=== PATIENT | female | born 2000 | race Caucasian/White ===

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

== ENCOUNTER 2021-10-31 17:00 | Outpatient (RCR) | payer MEDICAID, SELFPAY ==
--- NOTE | 2021-09-26 18:03 | HP.PTEVAL ---
Patient's Visit Information ELEAZAR STEELE is a 21 year old F referred to Physical Therapy by LENNY Webster with a diagnosis of B knee pain. Date of Evaluation: 09/26/21 Physical Therapist: Pancho Valenzuela, PT, ATC - Visit Plan Frequency: 2-3x /Week Duration: 4-6 Weeks Plan: B LE stretching, strenthening (hip abd and vmo), core stab ex's, balance and proprio, bike, and HEP - Subjective Pt reports she has had chronic B knee pain for years. This episode started a couple weeks ago with an insidious onset. Pt reports she had recent x-rays which showed no significant findings. Pt reports no tingling or numbness in B LE's with exception to L knee secondary to hjaving surgery 2 years ago to re-align her patella. Pt reports occasional sleep difficulty secondary to pain. Pt reports she has a hard time with running, jumping, and squatting secondary to pain. 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 Pt reports B knee pain is rated at 3/10 at rest, increases to 8/10 at worst. Pt reports 3 stairs to get into her house, and notes difficulty with negotiating them. - Pain B knees Pain Intensity (Out of 10): 3 Pain Intensity Range: 8 - Objective Neuro: B LE sensation is WNL to light touch. B patellar reflex= 1/3. Girth at joint line: B knees 41 cm. ROM: L knee 0-130, R knee 0-125. MMT: B knees are grossly 4/5 and painful with testing. Special tests: Pos McConnells sign, 90/90 test, knee valgus with lunges - Balance/Special Test Scores Lower Extremity Functional Score: 47 - Goals Goal 1:: Decrease B knee pain x 50% to aid with sleep Goal Time Frame: 4-6 Weeks Goal 2:: Increase B knee strength x 1 grade to aid with stair negotiation Goal Time Frame: 4-6 Weeks Goal 3:: Increase B HS flexibility x 1 grade to aid with decreasing pain Goal Time Frame: 4-6 Weeks Goal 4:: I with HEP Goal Time Frame: 4-6 Weeks - Rehabilitation Potential Physical Therapy Diagnosis: B knee pain, weakness, and limited flexibility secondary to patello-femoral syndrome Rehabilitation Potential: Good - Anticipated Interventions Patient/Client Instruction: Educate patient on: Condition, Plan of Care For the Purpose of:: To improve self management Therapeutic Exercise to Include: Strength training, Endurance training, Balance training, Flexibilty training, Dynamic Lumbar Stabilization For the Purpose of:: To decrease pain, To improve muscle performance and motor function Cryotherapy (ice pack, ice massage): Yes For the Purpose of:: To decrease pain Thank you for the opportunity to evaluate your patient. For Medicare and Medicare HMO plans, please review the plan of care and approve it. It will need to be FAXED BACK to us at [phone] for Medicare purposes. For Medicare only, by signing this I certify the plan of care. Please let me know if there are questions or concerns regarding this plan of care. Physician Signature: Date:
--- NOTE | 2021-12-05 15:20 | HP.PT.NRP ---
ELEAZAR STEELE was seen in my office for initial evaluation on 09/26/21. The following Plan of Care was established for this patient: Initial Frequency: 2-3x /Week Initial Duration: 4-6 Weeks Patient/Client Instruction: Educate patient on: Condition, Plan of Care For the Purpose of:: To improve self management Therapeutic Exercise to Include: Strength training, Endurance training, Balance training, Flexibilty training, Dynamic Lumbar Stabilization For the Purpose of:: To decrease pain, To improve muscle performance and motor function Cryotherapy (ice pack, ice massage): Yes For the Purpose of:: To decrease pain This patient was last seen in our office . Pertinent comments regarding their Physical therapy will appear below: Pt was treated for B knee pain for 8 PT visits through the date of 10/31/21. Pt has not returned through todays date and is discontinued at this time. At this point I will be discontinuing this patient from physical therapy. I would be happy to see this patient again in the future if found appropriate by the physician. Thank you! Pancho Valenzuela, PT, ATC Balance/Gait/Functional tests - Balance/Special Test Scores Lower Extremity Functional Score: 47
== END 2021-10-31 19:00 | disposition home or self-care (01) ==
LOC: PT 17:00
PROVIDERS: PCP Family Medicine; Referring Provider Physician Assistant; Visit Provider Physician Assistant
DX: M22.2X1 Patellofemoral disorders, right knee (principal); M22.2X2 Patellofemoral disorders, left knee; M70.51 Other bursitis of knee, right knee; M70.52 Other bursitis of knee, left knee; R53.1 Weakness
CPT/HCPCS: 97110; 97161

== ENCOUNTER → 2022-12-08 | Outpatient (CLI) | payer MEDICAID, SELFPAY ==
[2022-12-08 17:44] LABS: Absolute Lymphocyte Count 2.75 X10^3/uL (0.83-4.51); Absolute Neutrophil Count 4.4 X10^3/uL (2.0-7.7); Basophil# 0.04 X10^3/uL; Basophil% 0.5 % (0-1); Eosinophil# 0.22 X10^3/uL; Eosinophils% 2.8 % (0-5); Hematocrit 40.4 % (37-47); Hemoglobin 13.4 g/dL (12.0-15.0); Lymphocyte # 2.75 X10^3/ul (0.83-4.51); Lymphocyte % 34.4 % (19-41); Mean Corp Hgb Conc 33.2 g/dL (32-36); Mean Corpuscular Hgb 31.9 pg (27.0-32.0); Mean Corpuscular Volume 96.2 fL (81-99); Mean Platelet Vol. 11.2 fl (6.2-12.0); Monocyte# 0.57 X10^3/uL; Monocyte% 7.1 % (0-10); NRBC Flagged by Analyzer 0 % (0-5); Neutrophil % 54.9 % (47-70); Platelet Count 356 K/mm3 (150-450); RBC Distribution Width SD 42.6 fl (35.1-43.9)
[2022-12-08 17:56] LABS: Anion Gap 9 (5-15); BUN 11 mg/dL (7-18); BUN/Creat Ratio 16.2 RATIO (10-20); Calcium,Total 9.5 mg/dL (8.5-10.1); Chloride 104 mmol/L (98-107); Creatinine, Serum 0.68 mg/dL (0.55-1.02); EST Glomerular Filtration Rate 116 mL/min (>60); Est Glom Filt Rate - Afr Amer 140 mL/min (>60); Glucose 84 mg/dL (74-106); Potassium 3.7 mmol/L (3.5-5.1); Sodium Level 140 mmol/L (136-145)
== END | disposition home or self-care (01) ==
LOC: BFHLAB 15:51
PROVIDERS: PCP Family Medicine; Visit Provider Family Medicine
DX: R42 Dizziness and giddiness (principal)
CPT/HCPCS: 36415; 80048; 85025

== ENCOUNTER 2023-03-27 06:14 | Emergency (ER) | payer MEDICAID, SELFPAY ==
[2023-03-27 06:16] VITALS: BP 138/89; PULSE 84; RESP 18; TEMP 36.3; O2SAT 97; BMI 33.1
--- NOTE | 2023-03-27 07:14 | CT_ITS ---
STUDY: CTA CHEST REASON FOR EXAM: Female, 22 years old. ? PE. Left-sided chest pain with deep breathing. RADIATION DOSAGE (If Supplied By Facility): CTDIvol = ( 12.7 ) mGy, DLP = ( 438.45 ) mGycm TECHNIQUE: The examination was performed with the intravenous administration of IV 100mL Isovue-370. Post-processing of the angiographic images was performed, with multiplanar reformation and 3D reconstruction. Individualized dose optimization techniques were used for this CT. COMPARISON: None. FINDINGS: Normal enhancement of the main pulmonary artery and right and left pulmonary arteries. Normal enhancement of the bilateral peripheral pulmonary arteries. There is no demonstrated pulmonary embolism. Normal thoracic aorta and visualized great vessels. There is no demonstrated aortic dissection. Normal heart and pericardium. Normal mediastinum. Normal hilar regions. Normal visualized trachea and bronchi. The lungs are well expanded. Normal pulmonary parenchyma. Normal pleura. Normal chest wall structures. Normal osseous structures. Normal visualized upper abdomen. CT/CTA Chest W/WO Contrast IMPRESSION: Normal CTA chest examination, without a demonstrated pulmonary embolism or arterial dissection. Electronically Signed: Ihsan Currie MD at 8:31 EDT ,
[2023-03-27] MEDS: 0.9% Normal Saline 1,000 ML 999 ML IV (07:41)
[2023-03-27 07:42] LABS: Absolute Lymphocyte Count 2.21 X10^3/uL (0.83-4.51); Absolute Neutrophil Count 2.3 X10^3/uL (2.0-7.7); Basophil# 0.05 X10^3/uL; Eosinophil# 0.14 X10^3/uL; Eosinophils% 2.8 % (0-5); Hematocrit 37.3 % (37-47); Hemoglobin 12.8 g/dL (12.0-15.0); Lymphocyte # 2.21 X10^3/ul (0.83-4.51); Lymphocyte % 43.7 % (19-41); Mean Corp Hgb Conc 34.3 g/dL (32-36); Mean Corpuscular Hgb 31.7 pg (27.0-32.0); Mean Corpuscular Volume 92.3 fL (81-99); Mean Platelet Vol. 10.9 fl (6.2-12.0); Monocyte% 7.9 % (0-10); NRBC Flagged by Analyzer 0 % (0-5); Neutrophil # 2.25 X10^3/uL (2.7-7.7); Neutrophil % 44.4 % (47-70); POSITIVE MORPHOLOGY YES; Platelet Count 189 K/mm3 (150-450); RBC Distribution Width CV 12.3 % (11.6-14.6); RBC Distribution Width SD 41.6 fl (35.1-43.9); Red Blood Count 4.04 M/mm3 (4.2-5.4); White Blood Count 5.1 K/mm3 (4.4-11.0)
[2023-03-27] MEDS: Ketorolac 30 MG/ML Syringe IV (07:42)
[2023-03-27 07:49] LABS: Differential Indicated SCAN CRITERIA MET
[2023-03-27 07:51] LABS: Internal QC Validated? YES +Cl - CLEAR BKGD; Pregnancy, Serum, hCG Quali. NEGATIVE Negative
[2023-03-27 07:57] LABS: Anion Gap 5 (5-15); BUN 7 mg/dL (7-18); BUN/Creat Ratio 12.7 RATIO (10-20); Calcium,Total 8.6 mg/dL (8.5-10.1); Chloride 112 mmol/L (98-107); Creatinine, Serum 0.55 mg/dL (0.55-1.02); EST Glomerular Filtration Rate 147 mL/min (>60); Est Glom Filt Rate - Afr Amer 178 mL/min (>60); Estimated Creatinine Clearance 157.34 ml/min; Glucose 116 mg/dL (74-106); Potassium 3.5 mmol/L (3.5-5.1); Sodium Level 144 mmol/L (136-145)
[2023-03-27 08:08] LABS: Differential Comment SCANNED
[2023-03-27 08:35] LABS: Partial Thromboplast Time 32.3 Seconds (24.1-36.2); Prothrombin Time (Protime)PT. 13.2 SECONDS (11.7-14.9)
[2023-03-27 08:43] VITALS: BP 119/71; PULSE 65; RESP 16; O2SAT 96
--- NOTE | 2023-03-27 09:02 | EX.ED.DYSGE1 ---
HPI History of Present Illness Chief Complaint: Other, Pain/Inj Narrative Narrative: Patient is a 22-year-old female with no significant past medical history. She states she was seen in outside hospital on Sunday secondary to pain along her left upper abdomen/lower rib cage that is worse with inspiration. She reports that there was no trauma and she did not have any flank pain or cough associated with the pain. She states that they performed a CT scan of her abdomen and pelvis and told her she has a urinary tract infection and placed her on antibiotics. Patient states that she has taken these for 2 days and despite the medication has had persistent pain mainly with inspiration in the left-sided lower rib cage. She states that her mother has history of nonprovoked blood clot and secondary to his has concerned that she may have developed them and comes in for repeat evaluation. PFSH PFSH Medical History no medical history Home Medications cephalexin 500 mg capsule 500 mg PO TID 03/27/23 [History Last Taken 03/27/23 0500] Allergy/AdvReac Type Severity Reaction Status Date / Time No Known Allergies Allergy Verified 03/27/23 06:19 Social History (Updated 12/19/19 @ 10:21 by LENNY Fernandes) Smoking Status: Never smoker ROS ROS ED Constitutional Constitutional ED: Denies chills or fever(s) ENT ENT ED: Denies sore throat Cardiovascular Cardiovascular: Reports chest pain; Denies palpitations or racing heartbeat Respiratory/Chest Respiratory/Chest: Denies cough or dyspnea Gastrointestinal Gastrointestinal: Denies abdominal pain, diarrhea, nausea or vomiting Genitourinary Genitourinary ED: Denies dysuria Musculoskeletal Musculoskeletal: Denies back pain or myalgias Integumentary Denies rash Neurologic Neurologic: Denies headache(s) Hematologic/Lymphatic Hematologic/Lymphatic: Denies easy bleeding or easy bruising EXAM Physical Exam Const Vital Signs: 03/27/23 06:16 03/27/23 07:46 03/27/23 08:43 Temperature 97.3 F L Temperature Source Temporal Pulse Rate 84 65 Respiratory Rate 18 16 Respiratory Effort Normal Non-Labored Respiratory Pattern Normal Blood Pressure 138/89 H 119/71 Blood Pressure Mean 105 87 Pulse Ox 97 96 Oxygen Delivery Method Room Air Room Air Positive well nourished and well developed General Appearance ED: well developed Eyes PERRL and EOMs intact bilaterally General Eye ED: Negative for scleral icterus Neck supple Chest Wall Chest Narrative: There is pain on palpation along the left anterior lateral lower rib cage ribs 11 or 12 without bony deformity or crepitance. Resp normal respiratory effort and clear to auscultation bilaterally Resp Narrative: Patient does have pleuritic chest pain Cardio regular rate and regular rhythm GI normal to inspection, nondistended, normoactive bowel sounds, non-tender, non-distended and no masses GI Narrative: No voluntary guarding or rigidity no pulsatile mass. Auscultation: normoactive bowel sounds Palpation: soft Back/Spine no CVA tenderness Extremity normal to inspection Extremity Narrative: No asymmetric edema no pitting edema negative Homans' sign bilaterally Neuro oriented x3 and CN's II-XII intact bilaterally Sensorium / Orientation: alert Psych mental status grossly normal Skin no rashes or lesions noted Skin Narrative: No overlying soft tissue changes to suggest trauma or infection MDM MDM MDM Narrative Medical decision making narrative: Patient presented to the ER with stable vitals and in no acute respiratory distress. She reported pain along the left anterior lateral lower ribs that is worse with inspiration but denied any recent trauma or excessive activity. Differential diagnosis includes musculoskeletal strain versus pneumonia versus pneumothorax versus pulmonary embolus. Because patient has a first relative with unprovoked pulmonary emboli and she does have persistent pain that is worse with inspiration I have concern for that despite stable vitals and therefore CTA was obtained. CT revealed no pulmonary embolus dissection or lung pathology. Blood work revealed no clinically significant finding. At this time patient could have simply a musculoskeletal strain but she could also have endometriosis or non-radiopaque kidney stone. As patient reports she had a recent CT scan of her abdomen pelvis did not feel there is need to repeat this as today's work-up rules out pulmonary embolus. As the patient's labs and vitals are stable I feel that she can follow-up on an outpatient basis as the life-threatening risk of PE or dissection has been ruled out. History & Record Review Discussion w/independent historian: Patient and Family Lab Data Attestation: I reviewed the patient's lab results. Labs: Laboratory Results - last 24 hr 03/27/23 03/27/23 03/27/23 07:33 07:33 07:33 WBC 5.1 RBC 4.04 L Hgb 12.8 Hct 37.3 MCV 92.3 MCH 31.7 MCHC 34.3 RDW Std Deviation 41.6 RDW Coeff of Aaron 12.3 Plt Count 189 MPV 10.9 Immature Gran % (Auto) 0.200 Neut % (Auto) 44.4 L Lymph % (Auto) 43.7 H [place] % (Auto) 7.9 Eos % (Auto) 2.8 Baso % (Auto) 1.0 Absolute Neuts (auto) 2.3 Absolute Lymphs (auto) 2.21 Nucleated RBC % 0 Differential Comment SCANNED PT 13.2 INR 1.0 APTT 32.3 Sodium 144 Potassium 3.5 Chloride 112 H Carbon Dioxide 27.0 Anion Gap 5 BUN 7 Creatinine 0.55 Estim Creat Clear Calc 157.34 Est GFR (MDRD) Af Amer 178 Est GFR (MDRD) Non-Af 147 BUN/Creatinine Ratio 12.7 Glucose 116 H Calcium 8.6 Serum , Qual 03/27/23 07:33 WBC RBC Hgb Hct MCV MCH MCHC RDW Std Deviation RDW Coeff of Aaron Plt Count MPV Immature Gran % (Auto) Neut % (Auto) Lymph % (Auto) [place] % (Auto) Eos % (Auto) Baso % (Auto) Absolute Neuts (auto) Absolute Lymphs (auto) Nucleated RBC % Differential Comment PT INR APTT Sodium Potassium Chloride Carbon Dioxide Anion Gap BUN Creatinine Estim Creat Clear Calc Est GFR (MDRD) Af Amer Est GFR (MDRD) Non-Af BUN/Creatinine Ratio Glucose Calcium Serum , Qual NEGATIVE Radiography Diagnostic Testing: Clinical Impression(s) from Imaging Studies Chest CTA 03/27/23 07:14 IMPRESSION: Normal CTA chest examination, without a demonstrated pulmonary embolism or arterial dissection. Electronically Signed: Ihsan Currie MD at 8:31 EDT , Discharge Plan Triage Chief Complaint: Other, Pain/Inj ED Provider: Vinicio Bailey Dx/Rx/DC Orders Clinical Impression: Pleuritic chest pain Instructions: ED Chest Pain, Uncertain Cause Prescriptions: No Action cephalexin 500 mg capsule 500 mg PO TID Label Comments: TAKE 1 CAPSULE BY MOUTH THREE TIMES DAILY Primary Care Provider: Israel Vieira Referrals: Israel Vieira, DO [Primary Care Provider] - Activity Restrictions/Additional Instructions: Please follow-up with your RISK CONTROL REPRESENTATIVE as your pain could be from endometriosis and they can further evaluate you on the cause of the discharge which very well could be bacterial vaginosis. However today's CT scan reveals that there is no signs of blood clot or dissection or lung infection or tumor causing your pain. Disposition Disposition: Home, Self Care
[2023-03-27 09:19] VITALS: BP 116/76; PULSE 67; RESP 16; O2SAT 99
== END 2023-03-27 09:20 | disposition home or self-care (01) ==
PROVIDERS: Emergency Provider Emergency Medicine; PCP Family Medicine; Visit Provider Emergency Medicine
DX: R07.81 Pleurodynia (principal)
CPT/HCPCS: 71275; 80048; 84703; 85025; 85610; 85730; 96361; 96374; 99282; J7030; Q9967; A4216

== ENCOUNTER → 2023-04-16 | Outpatient (CLI) | payer MEDICAID, SELFPAY ==
[2023-04-25 20:40] LABS: HPV Reflexed? NOT INDICATED
== END | disposition home or self-care (01) ==
LOC: WOBLAB 16:03
PROVIDERS: PCP Family Medicine; Visit Provider Student in an Organized Health Care Education/Training Program
DX: Z01.419 Encounter for gynecological examination (general) (routine) without abnormal findings (principal)
CPT/HCPCS: 88175; G0145